=== PATIENT | male | born 1990 | race African-American/Black ===

== ENCOUNTER 2021-04-15 21:11 | Inpatient (IN) | payer OTHER ==
[~2021-04-15] VITALS: Ht 175.3 cm; Wt 75.0 kg
--- NOTE | 2021-04-15 21:17 | NUR ---
PT ARRIVED VIA EMS IN RESPIRATORY DISTRESS BEING GIVEN RESPIRATIONS VIA AMBU BAG PT TRANSFERRED TO [facility] AND INITIAL VITALS TAKEN. RSI BEGAN AND EKG DONE AND EVALUATED BY DR. PARISH. HR 153 77% ON BVM 156/28 RR 25 MEDICATIONS GIVEN AT 2121 10 ETOMIDATE 70 ROCURONIUM TEMP TABOR PUT IN 137 HR 81 % BVM 17 RR 163/27 2122 MAC 4 USED FOR SIZE 8 TUBE AT 26 AT TEETH. 5 MG VERSED GIVEN 2127 NO PULSE, CPR GIVEN 1MG EPI GIVEN 0J BP 2128 1L FLUIDS TEMP 39.2C 2129 STOPPED COMPRESSIONS PADS PLACED 20 G IN HAND PLACED PULSE CHECK AT 2 MIN AFTER CPR BEGAN HR 206 - PULSE CONFIRMED RR 25 BVM 40.1 TEMP 2131 PULSES CONFIRMED BP 106/37 40.6 TEMP 93 VENT 100% O2 2135 HR 176 RR 24 BP SPO2 98%
[2021-04-15] MEDS ORDERED: naloxone 0.4 mg/ml inj ONE (21:20)
[2021-04-15] MEDS ORDERED: naloxone 2mg/2ml inj ONE (21:20)
[2021-04-15] MEDS ORDERED: NORepinephrine 8mg/ 250ml NS 250 ML IV ONE (21:33)
[2021-04-15 21:34] LABS: ABG BASE EXCESS -15.7 mmol/L (-2.0-2.0); ABG HCO3 14.2 mmol/L (22.0-26.0); ABG OXYGEN SATURATION 99.4 % (94-97); ABG PCO2 (T) 55.1 mmHg (35.0-48.0); ABG PO2 (T) 378.6 mmHg (75.0-100.0); ALLEN'S TEST POSITIVE; FCOHb 0.2 % (0.0-3.9); FMetHb 0.4 % (0.0-1.5); FO2Hb 98.8 % (94-97); TOTAL HEMOGLOBIN 15.4 G/dl (14.0-18.0)
[2021-04-15] MEDS ORDERED: normal saline 1000ml 1,000 ML ONE ×2 (21:43→21:53)
--- NOTE | 2021-04-15 21:44 | NUR ---
2140 BG 96 HR 181 NOREPI DRIP BEGAN AT 0.5 MCG/KG/MIN PULSE CONFIRMED TO BE 179 BP 63/36 PT ON VENT AT RR22, 101 FIO2, 540 TIDAL VOLUME AND 16 PEAK PRESSURE 2146 BP 74/28 179 PULSE 1 AMP BICARB GIVEN 2148 BP 87/30 HR 172 RR 22 ON VENT 101 FIO2 SET UP FOR ARTERIAL LINE FOR DR. PARISH 2ND LITER NS IN ORDER FOR FENTANYL AND VERSED DRIPS IN CENTRAL LINE INITIATED BY DR. PARISH 2154 SET UP FOR ART LINE WELL 2200 HR 1710 BP 95/30 RR 22 ON VENT 101 % TEMP 41.2 2203 HR 168 BP 100/30
[2021-04-15] MEDS ORDERED: FENTANYL-0.9 % NACL/PF 100 ML IV PRN (21:50)
--- NOTE | 2021-04-15 22:04 | NUR ---
FENTANYL DRIP 35 MCG/HR INITIATED BP 109/28 PULSE 168
[2021-04-15] MEDS ORDERED: iohexol 300mg/ml 100ml inj. ONE (22:05)
[2021-04-15 22:07] LABS: BASOPHILS # (AUTO) 0.1 X10'3 (0-0.2); EOSINOPHILS # (AUTO) 0.1 X10'3 (0-0.9); EOSINOPHILS % (AUTO) 2.2 % (0-6); HEMATOCRIT 41.7 % (42.0-52.0); HEMOGLOBIN 13.6 g/dl (14.0-17.9); MEAN CORPUSCULAR HEMOGLOBIN 32.4 PG (27.0-31.0); MEAN CORPUSCULAR HGB CONC 32.6 g/dL (33.0-36.5); MEAN CORPUSCULAR VOLUME 99.3 FL (78-98); MEAN PLATELET VOLUME 8.3 FL (7.4-10.4); MONOCYTES # (AUTO) 0.6 X10'3 (0-0.9); MONOCYTES % (AUTO) 8.4 % (2-12); NEUTROPHILS % (AUTO) 58.4 % (42-75); PLATELET COUNT 310 X10'3 (140-440); RED CELL DISTRIBUTION WIDTH 12.9 % (11.5-14.5); WHITE BLOOD COUNT 6.8 X10'3 (4.5-11.0)
--- NOTE | 2021-04-15 22:10 | NUR ---
18G IV RIGHT AC WITH NOREPI PT GETTING PREPARED TO GO TO CT NOREPI DRIP MOVED TO CENTRAL LINE VERSED BEGAN AT 5MG/HR HOOKED TO CENTRAL LINE ALL MEDICATIONS NOW RUNNING THROUGH CENTRAL LINE PT TO TAX MANAGER PUBLIC AT 2024 WITH RT AND SLATE MIXER WITH PT CURRENT BP 113/42 HR 170
[2021-04-15 22:29] LABS: ALANINE AMINOTRANSFERASE 77 U/L (12-78); ALBUMIN 3.6 G/DL (3.4-5.0); ALBUMIN/GLOBULIN RATIO 0.8 (1.1-1.5); ALKALINE PHOSPHATASE 70 IU/L (46-116); ANION GAP 20 (8-16); ASPARTATE AMINO TRANSFERASE 216 U/L (10-37); BLOOD UREA NITROGEN 24 MG/DL (7-18); BUN/CREATININE RATIO 7.4 (5.4-32.0); CALCIUM 8.5 MG/DL (8.5-10.1); CARBAMAZEPINE (TEGRETOL) < 0.5 UG/ML (4.0-12.0); CHLORIDE 107 MMOL/L (99-107); CREATININE 3.25 MG/DL (0.60-1.10); GLUCOSE 122 MG/DL (70-104); SODIUM 147 MMOL/L (135-145); TOTAL CARBON DIOXIDE 20.1 MMOL/L (24-32); TOTAL PROTEIN 7.9 G/DL (6.4-8.2); VALPROATE < 3.0 UG/ML (50-100); eGFR 22 ML/MIN
[2021-04-15 22:31] LABS: ACETAMINOPHEN < 2.0 UG/ML (10-30); ETHANOL < 0.010 GM/DL (0.0-0.010); PHENYTOIN (DILANTIN) < 0.5 UG/ML (10.0-20.0)
[2021-04-15] MEDS ORDERED: VANCOMYCIN 1,500MG inj. 1,500 MG in normal saline 250ml IV soln 300 ML IV ONE (22:35)
[2021-04-15] MEDS ORDERED: piperacillin/tazo 4.5gm/100ml 100 ML IV ONE (22:37)
[2021-04-15] MEDS ORDERED: acetaminophen 650mg rectal suppository RC ONE (23:00)
[2021-04-15] MEDS: midazolam 100mg in NS 100ml 100 ML IV PRN (23:43)
[2021-04-15] MEDS: FENTANYL-0.9 % NACL/PF 100 ML IV PRN (23:44)
[2021-04-16] VITALS (20 sets, daily range): BP systolic 90–124; BP diastolic 44–88
[2021-04-16] MEDS ORDERED: CefTRIAXone 2gm/D5W 50ml BAG 50 ML IV ONE (00:11)
[2021-04-16] MEDS ORDERED: NORepinephrine 8mg/ 250ml NS 250 ML IV ONE ×2 (01:04→06:01)
[2021-04-16] MEDS: FENTANYL-0.9 % NACL/PF 100 ML IV PRN (01:24)
[2021-04-16 01:40] LABS: GLUCOSE,CSF 100 MG/DL (40-75); TOTAL PROTEIN,CSF 29 MG/DL (15-45)
[2021-04-16 01:44] LABS: APPEARANCE,CSF CLEAR; CSF SUPERNATANT COLOR COLORLESS
[2021-04-16 01:45] LABS: CSF RBC 1 /CU MM (0); CSF VOLUME 9 ML; TUBE# COUNTED 4
[2021-04-16 01:48] LABS: CSF WBC CT 1 /CU MM (0-5)
[2021-04-16 02:37] LABS: HEMATOCRIT 44.1 % (42.0-52.0); HEMOGLOBIN 14.4 g/dl (14.0-17.9); MEAN CORPUSCULAR HEMOGLOBIN 32.3 PG (27.0-31.0); MEAN CORPUSCULAR HGB CONC 32.6 g/dL (33.0-36.5); MEAN CORPUSCULAR VOLUME 99.1 FL (78-98); MEAN PLATELET VOLUME 8.4 FL (7.4-10.4); PLATELET COUNT 158 X10'3 (140-440); RED BLOOD COUNT 4.45 X10'6 (4.70-6.10); RED CELL DISTRIBUTION WIDTH 13.1 % (11.5-14.5); WHITE BLOOD COUNT 14.3 X10'3 (4.5-11.0)
[2021-04-16] MEDS ORDERED: magnesium 2GM in 50ml NS 50 ML IV PRN (02:40)
[2021-04-16] MEDS ORDERED: potassium Cl 40MEQ/250ML bag 270 ML IV PRN ×2 (02:40)
[2021-04-16 02:53] LABS: ABG BASE EXCESS -15.9 mmol/L (-2.0-2.0); ABG HCO3 11.7 mmol/L (22.0-26.0); ABG OXYGEN SATURATION 99.5 % (94-97); ABG PCO2 (T) 31.3 mmHg (35.0-48.0); ABG PO2 (T) 370.8 mmHg (75.0-100.0); FMetHb 0.3 % (0.0-1.5); FO2Hb 99.2 % (94-97); PATIENT TEMPERATURE 35.4; RESPIRATORY RATE 22 b/min; TIDAL VOLUME 500 mL; TOTAL HEMOGLOBIN 15.5 G/dl (14.0-18.0)
[2021-04-16 03:47] LABS: ALANINE AMINOTRANSFERASE 861 U/L (12-78); ALBUMIN 2.7 G/DL (3.4-5.0); ALBUMIN/GLOBULIN RATIO 0.8 (1.1-1.5); ALKALINE PHOSPHATASE 83 IU/L (46-116); ANION GAP 19 (8-16); BILIRUBIN,TOTAL 1.1 MG/DL (0.1-1.0); BLOOD UREA NITROGEN 28 MG/DL (7-18); BUN/CREATININE RATIO 6.8 (5.4-32.0); CHLORIDE 114 MMOL/L (99-107); CREATININE 4.09 MG/DL (0.60-1.10); MAGNESIUM 3.3 MG/DL (1.5-2.4); PHOSPHORUS 5.7 MG/DL (2.3-4.5); POTASSIUM 3.5 MMOL/L (3.5-5.1); SODIUM 149 MMOL/L (135-145); TOTAL CARBON DIOXIDE 16.5 MMOL/L (24-32); TOTAL PROTEIN 6.3 G/DL (6.4-8.2); eGFR 21 ML/MIN
[2021-04-16 03:49] LABS: ASPARTATE AMINO TRANSFERASE 1751 U/L (10-37)
[2021-04-16] MEDS ORDERED: CALCIUM GLUC 1gm/50ml NACL,iso 50 ML IV SCH (04:15)
[2021-04-16] MEDS ORDERED: dextrose 50%-water 50ml dispensing syringe IV ONE ×3 (04:15→12:06)
[2021-04-16 04:29] LABS: CALCIUM 5.8 MG/DL (8.5-10.1); GLUCOSE 28 MG/DL (70-104)
[2021-04-16 04:38] LABS: CREATINE KINASE 33546 U/L (39-308)
[2021-04-16] MEDS: vasopressin inj. 40 UNIT in normal saline 50ml IV soln 38 ML IV SCH ×2 (05:45→16:28)
[2021-04-16] MEDS ORDERED: sodium bicarbonate (8.4%) inj. 150 MEQ in dextrose 5%-water 1,000 ML IV SCH (06:00)
[2021-04-16] MEDS ORDERED: thiamine 100mg/ml 2ml inj. IV ONE (06:00)
[2021-04-16] MEDS ORDERED: thiamine inj. 100 MG in normal saline 100ml IV soln 100 ML IV ONE (06:10)
--- NOTE | 2021-04-16 07:00 | NUR ---
patient had levophed and vasopressin running. Order for levophed was not transferred from ER. order placed for levophed.
[2021-04-16] MEDS: K, MAG and/or Phos replacement - Verify level? MC SCH (07:50)
[2021-04-16] MEDS ORDERED: rocuronium 10mg/ml inj IV ONE (08:00)
[2021-04-16] MEDS ORDERED: hydrocortisone sod succ/PF 100mg/2ml inj. IV SCH (08:00)
[2021-04-16] MEDS ORDERED: epiNEPHrine 0.1mg/ml 10ml syringe ONE (08:00)
[2021-04-16] MEDS ORDERED: sodium bicarbonate (8.4%) 1 mEq/ml syringe ONE (08:00)
[2021-04-16] MEDS: docusate sod 100mg capsule PO SCH ×2 (08:00→20:00)
[2021-04-16] MEDS: NORepinephrine 8mg/ 250ml NS 250 ML IV SCH ×6 (08:20→23:06)
[2021-04-16] MEDS: pantoprazole 40 MG vial IV SCH (08:44)
[2021-04-16] MEDS: midazolam 100mg in NS 100ml 100 ML IV PRN (08:44)
[2021-04-16] MEDS: mineral oil/petrolatum ophthal oint EACHEYE PRN (09:44)
--- NOTE | 2021-04-16 10:00 | NUR ---
updated on patient's condition and current labs. orders received for cryo, 2 FFP, D10, solucortef at 100, thyroid panel and cortisol.
--- NOTE | 2021-04-16 11:00 | NUR ---
MD aware patient is having bleeding from Nares, mouth, and continuous liquid pink stool. patient is not on sedation , has no corneal reflexes and pupils are nonreactive and pinpoint. [facility] contacted.
[2021-04-16 11:37] LABS: EOSINOPHILS # (AUTO) 0.1 X10'3 (0-0.9); HEMOGLOBIN 12.2 g/dl (14.0-17.9); MEAN PLATELET VOLUME 7.5 FL (7.4-10.4); MONOCYTES # (AUTO) 0.9 X10'3 (0-0.9); RED BLOOD COUNT 3.79 X10'6 (4.70-6.10)
[2021-04-16 11:39] LABS: BASOPHILS % (AUTO) 0.3 % (0-1); EOSINOPHILS % (AUTO) 0.5 % (0-6); HEMATOCRIT 37.8 % (42.0-52.0); LYMPHOCYTES # (AUTO) 1.9 X10'3 (1.1-4.8); LYMPHOCYTES % (AUTO) 13.9 % (21-51); MEAN CORPUSCULAR HEMOGLOBIN 32.3 PG (27.0-31.0); MEAN CORPUSCULAR HGB CONC 32.3 g/dL (33.0-36.5); MEAN CORPUSCULAR VOLUME 99.9 FL (78-98); MONOCYTES % (AUTO) 7.1 % (2-12); NEUTROPHILS # (AUTO) 10.5 X10'3 (1.8-7.7); NEUTROPHILS % (AUTO) 78.2 % (42-75); PLATELET COUNT 94 X10'3 (140-440); RED CELL DISTRIBUTION WIDTH 13.4 % (11.5-14.5); WHITE BLOOD COUNT 13.4 X10'3 (4.5-11.0)
--- NOTE | 2021-04-16 11:40 | NUR ---
Initial: Pt intubated after being found down by EMS DX shock, respiratory failure, renal failure, and hx N/V episode in the field prior to requiring intubation per EMR. Remains NPO at this time w/ OG in place MAP [address] AM [address] rounds. Noted critical GLU 28 early this AM s/p D50 now WNL. TF recs below in case prolonged intubation. Will monitor for nutrition support needs on vent. Rec: 1. IF TF; Vital AF at 75ml/hr goal; to provide 1800ml volume, 2160kcals, 1458ml free water, and 135g protein. 2. IF TF; additional water flush 200ml Q4H 3. IF TF; PALB Q /; daily wts 4. routine bowel care 5. upon extubation; advance diet as medically indicated to regular; consider renal diet if renal labs continue to worsen 6. 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
[2021-04-16 12:01] LABS: ALBUMIN 1.9 G/DL (3.4-5.0); ALBUMIN/GLOBULIN RATIO 0.7 (1.1-1.5); ALKALINE PHOSPHATASE 73 IU/L (46-116); ANION GAP 21 (8-16); BILIRUBIN,TOTAL 0.9 MG/DL (0.1-1.0); BLOOD UREA NITROGEN 35 MG/DL (7-18); BUN/CREATININE RATIO 7.8 (5.4-32.0); CHLORIDE 118 MMOL/L (99-107); CREATININE 4.47 MG/DL (0.60-1.10); POTASSIUM 3.3 MMOL/L (3.5-5.1); SODIUM 151 MMOL/L (135-145); TOTAL PROTEIN 4.5 G/DL (6.4-8.2); eGFR 19 ML/MIN
[2021-04-16 12:03] LABS: GLUCOSE 28 MG/DL (70-104); TOTAL CARBON DIOXIDE 12.4 MMOL/L (24-32)
[2021-04-16 12:04] LABS: ALANINE AMINOTRANSFERASE 1325 U/L (12-78)
[2021-04-16 12:05] LABS: CALCIUM < 5.0 MG/DL (8.5-10.1)
[2021-04-16] MEDS ORDERED: sodium chloride inj. 154 MEQ in Dextrose 10%-water IV solution 961.5 ML IV SCH (12:15)
[2021-04-16 12:17] LABS: ASPARTATE AMINO TRANSFERASE 2421 U/L (10-37)
[2021-04-16] MEDS: dextrose 50%-water 50ml dispensing syringe IV PRN (12:23)
[2021-04-16 12:28] LABS: PARTIAL THROMBOPLASTIN TIME 70 SECONDS (22-32)
[2021-04-16] MEDS: Dextrose 10%-water IV solution 1,000 ML IV SCH ×2 (12:30→22:15)
[2021-04-16 12:44] LABS: MAGNESIUM 2.4 MG/DL (1.5-2.4); PHOSPHORUS 6.6 MG/DL (2.3-4.5)
[2021-04-16 14:50] LABS: NUCLEATED RED BLOOD CELLS 3 /100WBC (0-0); PLATELET ESTIMATE DECREASED; TOTAL CELLS COUNTED 100
[2021-04-16 14:51] LABS: POLYCHROMASIA FEW; SCHISTOCYTES FEW
[2021-04-16 16:16] LABS: ABG BASE EXCESS -17.8 mmol/L (-2.0-2.0); ABG HCO3 10.2 mmol/L (22.0-26.0); ABG OXYGEN SATURATION 97.4 % (94-97); ABG PCO2 (T) 32.9 mmHg (35.0-48.0); ABG PO2 (T) 121.6 mmHg (75.0-100.0); FCOHb 0.3 % (0.0-3.9); FMetHb 0.4 % (0.0-1.5); FO2Hb 96.7 % (94-97); PATIENT TEMPERATURE 37.7; PEEP 5 cm H2O; RESPIRATORY RATE 26 b/min; TIDAL VOLUME 500 mL
[2021-04-16] MEDS: hydrocortisone sod succ/PF 100mg/2ml inj. IV SCH (16:24)
--- NOTE | 2021-04-16 16:35 | NUR ---
notified MD patient is maxed out on norepinepherine and vasopressin with a MAP of 58. MD aware of patient's change in ABG. Orders to discontinue the bicarb drip and to redraw lactic at 2200.
[2021-04-16] MEDS ORDERED: potassium Cl 20mEq/100mL bag 100 ML IV ONE (17:05)
--- NOTE | 2021-04-16 17:53 | NUR ---
attempted to contact Dr. Berry about patient's positive blood cultures. Mailbox is full. will try again.
[2021-04-16] MEDS ORDERED: NORepinephrine inj. 32 MG in normal saline 250ml IV soln 218 ML IV SCH (20:45)
[2021-04-16 21:47] LABS: EOSINOPHILS % (AUTO) 0.2 % (0-6); MEAN CORPUSCULAR VOLUME 100.1 FL (78-98)
[2021-04-16 21:48] LABS: BASOPHILS % (AUTO) 0.1 % (0-1); HEMATOCRIT 34.5 % (42.0-52.0); LYMPHOCYTES # (AUTO) 1.3 X10'3 (1.1-4.8); LYMPHOCYTES % (AUTO) 9.4 % (21-51); MEAN CORPUSCULAR HEMOGLOBIN 31.9 PG (27.0-31.0); MEAN CORPUSCULAR HGB CONC 31.9 g/dL (33.0-36.5); MEAN PLATELET VOLUME 8.7 FL (7.4-10.4); MONOCYTES # (AUTO) 0.6 X10'3 (0-0.9); MONOCYTES % (AUTO) 4.4 % (2-12); NEUTROPHILS # (AUTO) 11.8 X10'3 (1.8-7.7); NEUTROPHILS % (AUTO) 85.9 % (42-75); RED BLOOD COUNT 3.45 X10'6 (4.70-6.10); RED CELL DISTRIBUTION WIDTH 13.3 % (11.5-14.5); WHITE BLOOD COUNT 13.7 X10'3 (4.5-11.0)
[2021-04-16 22:01] LABS: PARTIAL THROMBOPLASTIN TIME 54 SECONDS (22-32)
[2021-04-16 22:12] LABS: ALBUMIN/GLOBULIN RATIO 0.7 (1.1-1.5); ALKALINE PHOSPHATASE 87 IU/L (46-116); ANION GAP 25 (8-16); BILIRUBIN,TOTAL 1.6 MG/DL (0.1-1.0); BLOOD UREA NITROGEN 43 MG/DL (7-18); BUN/CREATININE RATIO 6.5 (5.4-32.0); CHLORIDE 112 MMOL/L (99-107); CREATININE 6.65 MG/DL (0.60-1.10); GLUCOSE 82 MG/DL (70-104); POTASSIUM 4.9 MMOL/L (3.5-5.1); SODIUM 147 MMOL/L (135-145); TOTAL PROTEIN 4.7 G/DL (6.4-8.2); eGFR 12 ML/MIN
[2021-04-16 22:23] LABS: PLATELET COUNT 44 X10'3 (140-440)
[2021-04-16 22:36] LABS: CALCIUM 5.2 MG/DL (8.5-10.1); TOTAL CARBON DIOXIDE 9.8 MMOL/L (24-32)
[2021-04-16 22:39] LABS: ALANINE AMINOTRANSFERASE 3532 U/L (12-78)
[2021-04-16 22:46] LABS: ASPARTATE AMINO TRANSFERASE > 7000 U/L (10-37)
[2021-04-16 23:23] LABS: VANCOMYCIN,RANDOM 21.1 UG/ML
[2021-04-17] VITALS (24 sets, daily range): BP systolic 90–157; BP diastolic 30–56
[2021-04-17] MEDS: hydrocortisone sod succ/PF 100mg/2ml inj. IV SCH ×3 (00:52→16:09)
[2021-04-17 01:41] LABS: URINE AMPHETAMINE SCREEN NEGATIVE (Neg); URINE BARBITUATE SCREEN NEGATIVE (Neg); URINE BENZODIAZEPINES SCREEN NEGATIVE (Neg); URINE CANNABINOID SCREEN NEGATIVE (Neg); URINE COCAINE SCREEN NEGATIVE (Neg); URINE METHADONE SCREEN NEGATIVE (Neg); URINE OPIATE SCREEN NEGATIVE (Neg); URINE PHENCYCLIDINE SCREEN NEGATIVE (Neg)
[2021-04-17] MEDS: CALCIUM GLUC 1gm/50ml NACL,iso 50 ML IV SCH ×2 (02:06→03:46)
[2021-04-17] MEDS: sodium bicarbonate (8.4%) inj. 150 MEQ in dextrose 5%-water 1,000 ML IV SCH ×3 (02:07→23:00)
[2021-04-17 03:26] LABS: CLARITY,URINE CLEAR (Clear); COLOR,URINE YELLOW (Yellow); GLUCOSE, URINE NEGATIVE (Neg); KETONES,URINE NEGATIVE (Neg); LEUKOCYTE ESTERASE ,URINE NEGATIVE (Neg); NITRITES, URINE NEGATIVE (Neg); OCCULT BLOOD,URINE LARGE (Neg); PH,URINE 6.5 (4.8-8.0); PROTEIN,URINE 100 mg/dl (Neg); UROBILINOGEN,URINE 0.2 E.U/dL (0.2-1.0)
[2021-04-17 03:46] LABS: ABG BASE EXCESS -23.6 mmol/L (-2.0-2.0); ABG HCO3 6.6 mmol/L (22.0-26.0); ABG OXYGEN SATURATION 97.2 % (94-97); ABG PCO2 (T) 30.6 mmHg (35.0-48.0); ABG PO2 (T) 134.8 mmHg (75.0-100.0); FCOHb 0.3 % (0.0-3.9); FMetHb 2.1 % (0.0-1.5); FO2Hb 94.9 % (94-97); PEEP 5 cm H2O; RESPIRATORY RATE 26 b/min; TIDAL VOLUME 500 mL; TOTAL HEMOGLOBIN 10.8 G/dl (14.0-18.0)
[2021-04-17] MEDS: dextrose 50%-water 50ml dispensing syringe IV PRN ×4 (03:47→23:21)
[2021-04-17 04:02] LABS: UA COLLECTION TYPE FOLEY CATH
[2021-04-17 04:07] LABS: BACTERIA,URINE NONE SEEN /HPF (Neg); MUCUS STRANDS FEW /LPF (Neg); RENAL CELLS, URINE FEW /HPF; SQUAMOUS EPITHELIAL CELL,UR NONE SEEN /LPF (FEW)
[2021-04-17 04:08] LABS: AMORPHOUS URATES 1+
[2021-04-17 04:28] LABS: MONOCYTES # (AUTO) 0.6 X10'3 (0-0.9)
[2021-04-17 04:30] LABS: BASOPHILS % (AUTO) 0.2 % (0-1); EOSINOPHILS # (AUTO) 0.1 X10'3 (0-0.9); EOSINOPHILS % (AUTO) 0.6 % (0-6); HEMATOCRIT 31.7 % (42.0-52.0); HEMOGLOBIN 10.1 g/dl (14.0-17.9); LYMPHOCYTES % (AUTO) 7.1 % (21-51); MEAN CORPUSCULAR HEMOGLOBIN 31.7 PG (27.0-31.0); MEAN CORPUSCULAR HGB CONC 31.7 g/dL (33.0-36.5); NEUTROPHILS # (AUTO) 12.6 X10'3 (1.8-7.7); NEUTROPHILS % (AUTO) 88.1 % (42-75); RED BLOOD COUNT 3.17 X10'6 (4.70-6.10); RED CELL DISTRIBUTION WIDTH 14.1 % (11.5-14.5); WHITE BLOOD COUNT 14.3 X10'3 (4.5-11.0)
[2021-04-17] MEDS ORDERED: sodium bicarbonate (8.4%) 1 mEq/ml syringe ONE (04:39)
[2021-04-17 04:40] LABS: PARTIAL THROMBOPLASTIN TIME 62 SECONDS (22-32)
[2021-04-17 04:44] LABS: ALBUMIN 1.7 G/DL (3.4-5.0); ALBUMIN/GLOBULIN RATIO 0.7 (1.1-1.5); ALKALINE PHOSPHATASE 94 IU/L (46-116); ANION GAP 30 (8-16); BLOOD UREA NITROGEN 48 MG/DL (7-18); BUN/CREATININE RATIO 6.2 (5.4-32.0); CHLORIDE 110 MMOL/L (99-107); CREATININE 7.77 MG/DL (0.60-1.10); GLUCOSE 120 MG/DL (70-104); MAGNESIUM 2.4 MG/DL (1.5-2.4); SODIUM 147 MMOL/L (135-145); VANCOMYCIN,RANDOM 20.2 UG/ML; eGFR 10 ML/MIN
[2021-04-17 04:46] LABS: POTASSIUM 6.1 MMOL/L (3.5-5.1)
[2021-04-17 04:47] LABS: CALCIUM 5.7 MG/DL (8.5-10.1); TOTAL CARBON DIOXIDE 7.5 MMOL/L (24-32)
[2021-04-17 05:03] LABS: PLATELET COUNT 47 X10'3 (140-440)
[2021-04-17] MEDS ORDERED: vancomycin/NS 1 GM ADD-VANTAGE 250 ML IV STA (05:03)
[2021-04-17 05:04] LABS: ALANINE AMINOTRANSFERASE 4819 U/L (12-78); ASPARTATE AMINO TRANSFERASE > 7000 U/L (10-37)
[2021-04-17] MEDS ORDERED: sodium bicarbonate (8.4%) 1 mEq/ml syringe IV ONE (05:05)
[2021-04-17 05:06] LABS: D-DIMER > 35.20 MG/L FEU (0-0.50)
[2021-04-17 05:20] LABS: PLATELET COUNT 47 X10'3 (140-440)
[2021-04-17 06:48] LABS: CREATINE KINASE 80984 U/L (39-308)
[2021-04-17] MEDS: pantoprazole 40 MG vial IV SCH (07:18)
[2021-04-17] MEDS: mineral oil/petrolatum ophthal oint EACHEYE PRN ×2 (07:25→16:17)
[2021-04-17] MEDS: docusate sod 100mg capsule PO SCH ×2 (07:30→20:00)
[2021-04-17] MEDS: K, MAG and/or Phos replacement - Verify level? MC SCH (07:31)
[2021-04-17 07:33] LABS: ABG OXYGEN SATURATION 96.6 % (94-97); ABG PCO2 (T) 25.4 mmHg (35.0-48.0); ABG PO2 (T) 116.2 mmHg (75.0-100.0); FCOHb 0.3 % (0.0-3.9); FMetHb 3.8 % (0.0-1.5); FO2Hb 92.6 % (94-97); PATIENT TEMPERATURE 36.8; PEEP 5 cm H2O; RESPIRATORY RATE 30 b/min; TIDAL VOLUME 521 mL; TOTAL HEMOGLOBIN 9.7 G/dl (14.0-18.0)
[2021-04-17] MEDS: NORepinephrine 8mg/ 250ml NS 250 ML IV SCH ×8 (07:42→20:32)
[2021-04-17] MEDS ORDERED: magnesium 4gm in 100ml NS 100 ML IV PRN (08:35)
[2021-04-17] MEDS ORDERED: calcium chloride inj. 1,000 MG in normal saline 100ml IV soln 100 ML IV PRN (08:35)
[2021-04-17] MEDS ORDERED: potassium Cl 40MEQ/250ML bag 270 ML IV PRN (08:35)
[2021-04-17] MEDS ORDERED: sodium phosphate inj. 30 MMOL in normal saline 250ml IV soln 250 ML IV PRN (08:35)
[2021-04-17] MEDS ORDERED: WATER IV ONE ×3 (08:55→14:30)
[2021-04-17] MEDS ORDERED: DEXTROSE 5% IV ONE ×3 (08:55→14:30)
[2021-04-17] MEDS ORDERED: ACETYLCYSTEINE IV ONE ×3 (08:55→14:30)
[2021-04-17] MEDS ORDERED: CefTRIAXone 2gm/D5W 50ml BAG 50 ML IV SCH (09:00)
[2021-04-17] MEDS: vasopressin inj. 40 UNIT in normal saline 50ml IV soln 38 ML IV SCH (09:28)
[2021-04-17 10:10] LABS: BASOPHILS # (AUTO) 0.1 X10'3 (0-0.2); HEMOGLOBIN 9.5 g/dl (14.0-17.9); LYMPHOCYTES # (AUTO) 1.8 X10'3 (1.1-4.8); LYMPHOCYTES % (AUTO) 10.3 % (21-51); MEAN CORPUSCULAR HGB CONC 31.6 g/dL (33.0-36.5); NEUTROPHILS # (AUTO) 14.5 X10'3 (1.8-7.7)
[2021-04-17 10:12] LABS: BASOPHILS % (AUTO) 0.4 % (0-1); EOSINOPHILS % (AUTO) 0.3 % (0-6); MEAN CORPUSCULAR HEMOGLOBIN 31.9 PG (27.0-31.0); MEAN CORPUSCULAR VOLUME 100.7 FL (78-98); MONOCYTES # (AUTO) 0.7 X10'3 (0-0.9); RED BLOOD COUNT 2.98 X10'6 (4.70-6.10); RED CELL DISTRIBUTION WIDTH 14.5 % (11.5-14.5); WHITE BLOOD COUNT 17.1 X10'3 (4.5-11.0)
[2021-04-17] MEDS: bicarb dialysis sol 2K+/3 Ca2+ 5,000 ML HE SCH ×7 (10:13→23:10)
[2021-04-17 10:21] LABS: PLATELET COUNT 39 X10'3 (140-440)
[2021-04-17 10:25] LABS: ALBUMIN 1.5 G/DL (3.4-5.0); ALBUMIN/GLOBULIN RATIO 0.7 (1.1-1.5); ALKALINE PHOSPHATASE 100 IU/L (46-116); ANION GAP 31 (8-16); BILIRUBIN,TOTAL 2.4 MG/DL (0.1-1.0); BLOOD UREA NITROGEN 50 MG/DL (7-18); BUN/CREATININE RATIO 6.2 (5.4-32.0); CHLORIDE 109 MMOL/L (99-107); GLUCOSE 81 MG/DL (70-104); MAGNESIUM 2.5 MG/DL (1.5-2.4); SODIUM 147 MMOL/L (135-145); TOTAL PROTEIN 3.7 G/DL (6.4-8.2); eGFR 9 ML/MIN
--- NOTE | 2021-04-17 10:30 | NUR ---
MD aware of patient's abnormal lab values, low temperature, unresponsiveness to painful stimuli, lack of corneal reflexes and rate of pressors. New orders received.
[2021-04-17 10:49] LABS: NUCLEATED RED BLOOD CELLS 5 /100WBC (0-0); PLATELET ESTIMATE DECREASED; TOTAL CELLS COUNTED 100
--- NOTE | 2021-04-17 10:57 | NUR ---
Pt with a low Jarad of 7. No edema or wounds per physical assessment however per RN at critical care rounds pt with DTIs to back side and back of legs. Multiple lacerations/abrasions in the lower extremities appear dried per MD note. Wound care has been consulted, pending assessment at this time. Pt started on CVVH, TF recommendations have been adjusted to accommodate. Will continue to follow closely. Addendum: 04/17/21 at [address] Amended: Links added.
[2021-04-17] MEDS: calcium chloride inj. 1,000 MG in normal saline 100ml IV soln 90 ML IV PRN ×2 (11:06→16:09)
[2021-04-17 11:34] LABS: ALBUMIN 1.5 G/DL (3.4-5.0); ANION GAP 35 (8-16); BLOOD UREA NITROGEN 49 MG/DL (7-18); BUN/CREATININE RATIO 6.3 (5.4-32.0); CHLORIDE 108 MMOL/L (99-107); CREATININE 7.79 MG/DL (0.60-1.10); GLUCOSE 92 MG/DL (70-104); MAGNESIUM 2.4 MG/DL (1.5-2.4); SODIUM 150 MMOL/L (135-145); eGFR 10 ML/MIN
[2021-04-17 11:36] LABS: PHOSPHORUS 14.1 MG/DL (2.3-4.5)
[2021-04-17 11:36] LABS: PHOSPHORUS 12.9 MG/DL (2.3-4.5)
[2021-04-17 11:42] LABS: CALCIUM 5.6 MG/DL (8.5-10.1); POTASSIUM 6.1 MMOL/L (3.5-5.1); TOTAL CARBON DIOXIDE 6.9 MMOL/L (24-32)
[2021-04-17 11:51] LABS: POTASSIUM 6.2 MMOL/L (3.5-5.1); TOTAL CARBON DIOXIDE 7.1 MMOL/L (24-32)
[2021-04-17 11:52] LABS: PARTIAL THROMBOPLASTIN TIME 78 SECONDS (22-32)
[2021-04-17 11:55] LABS: ALANINE AMINOTRANSFERASE 5779 U/L (12-78)
[2021-04-17 12:14] LABS: ASPARTATE AMINO TRANSFERASE > 7000 U/L (10-37)
--- NOTE | 2021-04-17 12:25 | NUR ---
notified of critical lab values lactic: 16.2, K 6.2, CO2 7.1, Ca 5.6, INR 4.6, PTT 78 plt 39. Repeat in 4hrs after CVVH up and running.
[2021-04-17 12:31] LABS: ALBUMIN 1.5 G/DL (3.4-5.0); ANION GAP 34 (8-16); BLOOD UREA NITROGEN 45 MG/DL (7-18); BUN/CREATININE RATIO 6.2 (5.4-32.0); CHLORIDE 108 MMOL/L (99-107); CREATININE 7.31 MG/DL (0.60-1.10); GLUCOSE 87 MG/DL (70-104); MAGNESIUM 2.4 MG/DL (1.5-2.4); SODIUM 148 MMOL/L (135-145); eGFR 11 ML/MIN
[2021-04-17 12:37] LABS: TOTAL CARBON DIOXIDE 6.5 MMOL/L (24-32)
[2021-04-17 12:40] LABS: PHOSPHORUS 12.5 MG/DL (2.3-4.5)
[2021-04-17 13:34] LABS: ALBUMIN 1.6 G/DL (3.4-5.0); ANION GAP 34 (8-16); BLOOD UREA NITROGEN 46 MG/DL (7-18); BUN/CREATININE RATIO 6.4 (5.4-32.0); CHLORIDE 107 MMOL/L (99-107); CREATININE 7.22 MG/DL (0.60-1.10); GLUCOSE 84 MG/DL (70-104); MAGNESIUM 2.2 MG/DL (1.5-2.4); SODIUM 147 MMOL/L (135-145); eGFR 11 ML/MIN
[2021-04-17 13:40] LABS: BASOPHILS % (AUTO) 0.3 % (0-1); EOSINOPHILS % (AUTO) 0.3 % (0-6); HEMOGLOBIN 10.3 g/dl (14.0-17.9); MEAN CORPUSCULAR HGB CONC 31.9 g/dL (33.0-36.5); MONOCYTES # (AUTO) 0.6 X10'3 (0-0.9)
[2021-04-17 13:42] LABS: BASOPHILS # (AUTO) 0.1 X10'3 (0-0.2); HEMATOCRIT 32.3 % (42.0-52.0); LYMPHOCYTES # (AUTO) 1.8 X10'3 (1.1-4.8); LYMPHOCYTES % (AUTO) 10.2 % (21-51); MEAN CORPUSCULAR HEMOGLOBIN 32.2 PG (27.0-31.0); MONOCYTES % (AUTO) 3.3 % (2-12); NEUTROPHILS % (AUTO) 85.9 % (42-75); RED CELL DISTRIBUTION WIDTH 14.3 % (11.5-14.5); WHITE BLOOD COUNT 17.4 X10'3 (4.5-11.0)
[2021-04-17 13:45] LABS: PLATELET COUNT 39 X10'3 (140-440); POTASSIUM 6.1 MMOL/L (3.5-5.1); TOTAL CARBON DIOXIDE 6.3 MMOL/L (24-32)
[2021-04-17 13:55] LABS: PHOSPHORUS 12.9 MG/DL (2.3-4.5)
--- NOTE | 2021-04-17 14:15 | NUR ---
notified MD patient maxed out on levophed and vasopressin with a MAP of 54. Orders received for 200mL 25% albumin and to keep patient 1L positive for current hour.
[2021-04-17] MEDS ORDERED: albumin (human) 25% 100 ML IV solution IV ONE (14:25)
[2021-04-17 15:24] LABS: BASOPHILS # (AUTO) 0.1 X10'3 (0-0.2); BASOPHILS % (AUTO) 0.4 % (0-1); HEMOGLOBIN 8.8 g/dl (14.0-17.9); MEAN CORPUSCULAR VOLUME 101.1 FL (78-98); MONOCYTES # (AUTO) 0.8 X10'3 (0-0.9)
[2021-04-17 15:25] LABS: EOSINOPHILS % (AUTO) 0.2 % (0-6); HEMATOCRIT 27.5 % (42.0-52.0); LYMPHOCYTES # (AUTO) 1.7 X10'3 (1.1-4.8); MEAN CORPUSCULAR HEMOGLOBIN 32.3 PG (27.0-31.0); MEAN CORPUSCULAR HGB CONC 31.9 g/dL (33.0-36.5); MEAN PLATELET VOLUME 9.8 FL (7.4-10.4); MONOCYTES % (AUTO) 4.7 % (2-12); NEUTROPHILS # (AUTO) 14.8 X10'3 (1.8-7.7); NEUTROPHILS % (AUTO) 84.7 % (42-75); RED BLOOD COUNT 2.72 X10'6 (4.70-6.10); RED CELL DISTRIBUTION WIDTH 14.7 % (11.5-14.5); WHITE BLOOD COUNT 17.4 X10'3 (4.5-11.0)
[2021-04-17 15:38] LABS: PLATELET COUNT 36 X10'3 (140-440)
[2021-04-17 15:40] LABS: ALBUMIN 2.3 G/DL (3.4-5.0); ANION GAP 34 (8-16); BLOOD UREA NITROGEN 42 MG/DL (7-18); BUN/CREATININE RATIO 6.3 (5.4-32.0); CHLORIDE 106 MMOL/L (99-107); CREATININE 6.67 MG/DL (0.60-1.10); GLUCOSE 76 MG/DL (70-104); SODIUM 147 MMOL/L (135-145); eGFR 12 ML/MIN
[2021-04-17 15:43] LABS: PHOSPHORUS 12.1 MG/DL (2.3-4.5)
[2021-04-17 15:49] LABS: POTASSIUM 6.2 MMOL/L (3.5-5.1)
[2021-04-17 15:50] LABS: TOTAL CARBON DIOXIDE 6.8 MMOL/L (24-32)
--- NOTE | 2021-04-17 18:25 | NUR ---
Patient in room CICU 2008. I have received report from Jane ENGLE and had the opportunity to ask questions and assume patient care.
[2021-04-17 19:25] LABS: ABG BASE EXCESS -23.3 mmol/L (-2.0-2.0); ABG HCO3 5.4 mmol/L (22.0-26.0); ABG OXYGEN SATURATION 97.8 % (94-97); ABG PCO2 (T) 20.3 mmHg (35.0-48.0); ABG PO2 (T) 124.7 mmHg (75.0-100.0); FCOHb 1.1 % (0.0-3.9); FMetHb 7.2 % (0.0-1.5); FO2Hb 89.7 % (94-97); PATIENT TEMPERATURE 37.4; PEEP 5 cm H2O; RESPIRATORY RATE 30 b/min; TIDAL VOLUME 500 mL; TOTAL HEMOGLOBIN 8.6 G/dl (14.0-18.0)
[2021-04-17] MEDS ORDERED: mineral oil/petrolatum, white cream 113gm jar TP SCH (20:00)
[2021-04-17 20:03] LABS: EOSINOPHILS # (AUTO) 0.1 X10'3 (0-0.9); HEMOGLOBIN 7.8 g/dl (14.0-17.9); LYMPHOCYTES # (AUTO) 1.2 X10'3 (1.1-4.8); MONOCYTES # (AUTO) 0.4 X10'3 (0-0.9)
[2021-04-17 20:05] LABS: BASOPHILS % (AUTO) 0.4 % (0-1); EOSINOPHILS % (AUTO) 0.7 % (0-6); HEMATOCRIT 24.5 % (42.0-52.0); LYMPHOCYTES % (AUTO) 10.1 % (21-51); MEAN CORPUSCULAR HEMOGLOBIN 31.7 PG (27.0-31.0); MEAN CORPUSCULAR HGB CONC 31.9 g/dL (33.0-36.5); MEAN CORPUSCULAR VOLUME 99.2 FL (78-98); MEAN PLATELET VOLUME 10.5 FL (7.4-10.4); MONOCYTES % (AUTO) 2.8 % (2-12); NEUTROPHILS # (AUTO) 10.6 X10'3 (1.8-7.7); RED BLOOD COUNT 2.47 X10'6 (4.70-6.10); RED CELL DISTRIBUTION WIDTH 14.3 % (11.5-14.5); WHITE BLOOD COUNT 12.4 X10'3 (4.5-11.0)
[2021-04-17 20:30] LABS: ALBUMIN 1.9 G/DL (3.4-5.0); ANION GAP 31 (8-16); BLOOD UREA NITROGEN 39 MG/DL (7-18); BUN/CREATININE RATIO 6.2 (5.4-32.0); CHLORIDE 106 MMOL/L (99-107); CREATININE 6.28 MG/DL (0.60-1.10); MAGNESIUM 2.3 MG/DL (1.5-2.4); SODIUM 148 MMOL/L (135-145); eGFR 13 ML/MIN
[2021-04-17 20:33] LABS: GLUCOSE 31 MG/DL (70-104); POTASSIUM 7.3 MMOL/L (3.5-5.1)
[2021-04-17 20:34] LABS: TOTAL CARBON DIOXIDE 10.8 MMOL/L (24-32)
[2021-04-17 20:38] LABS: PLATELET COUNT 35 X10'3 (140-440)
[2021-04-17 20:56] LABS: PARTIAL THROMBOPLASTIN TIME 88 SECONDS (22-32)
[2021-04-17] MEDS ORDERED: NORepinephrine inj. 32 MG in normal saline 250ml IV soln 218 ML IV SCH (21:05)
[2021-04-17 21:06] LABS: PHOSPHORUS 13.3 MG/DL (2.3-4.5)
[2021-04-17] MEDS: epiNEPHrine inj 5 MG in normal saline 250ml IV soln 245 ML IV PRN ×2 (21:45→23:56)
[2021-04-18] VITALS: BP 107/33
--- NOTE | 2021-04-18 00:30 | NUR ---
RN IS TO DOCUMENT YES TO ALL APPLICABLE AREAS Pronouncement of : 1. Time Physician Notified: 49 2. Date of : 04/18/2021 3. Time of : 11 4. DNR/Withdraw life support documented: Yes 5. Monitor strip has been placed on chart: Yes 6. Assessment process is of one-minute duration and includes following criteria: a) Patient is unresponsive to all stimuli: Yes b) Pupils fixed and non-reactive: Yes c) Auscultation of precordium reveals absence of heart tones: Yes d) Auscultation of lungs reveals absence of breath sounds: Yes e) Absence of blood pressure / all vital signs: Yes f) QRS complexes are not present on monitor / EKG strip: Yes g) Pacer spikes without capture: NA 4. Comments: Dr. Stevens notified of patient's , Deputy Rad Hutton notified on patient's as well
[2021-04-18] MEDS ORDERED: silver sulfadiazine cream 400gm jar TP SCH (08:00)
== END 2021-04-18 05:26 | disposition expired | DRG 871 ==
LOC: ER 21:12 → ED HOLD 04-16 02:39 → CICU 2S 04-16 02:40
PROVIDERS: ADMIT Student in an Organized Health Care Education/Training Program; ATTEND Student in an Organized Health Care Education/Training Program
PROC: 5A1945Z Respiratory Ventilation, 24-96 Consecutive Hours (ICD-10-PCS; principal; 2021-04-15)
PROC: 0BH17EZ Insertion of Endotracheal Airway into Trachea, Via Natural or Artificial Opening (ICD-10-PCS; 2021-04-15)
PROC: 5A12012 Performance of Cardiac Output, Single, Manual (ICD-10-PCS; 2021-04-15)
PROC: 06HY33Z Insertion of Infusion Device into Lower Vein, Percutaneous Approach (ICD-10-PCS; 2021-04-15)
PROC: B54CZZA Ultrasonography of Left Lower Extremity Veins, Guidance (ICD-10-PCS; 2021-04-15)
PROC: 04HY32Z Insertion of Monitoring Device into Lower Artery, Percutaneous Approach (ICD-10-PCS; 2021-04-15)
PROC: 009U3ZX Drainage of Spinal Canal, Percutaneous Approach, Diagnostic (ICD-10-PCS; 2021-04-15)
PROC: BW251ZZ Computerized Tomography (CT Scan) of Chest, Abdomen and Pelvis using Low Osmolar Contrast (ICD-10-PCS; 2021-04-15)
PROC: 30233K1 Transfusion of Nonautologous Frozen Plasma into Peripheral Vein, Percutaneous Approach (ICD-10-PCS; 2021-04-16)
PROC: 30233M1 Transfusion of Nonautologous Plasma Cryoprecipitate into Peripheral Vein, Percutaneous Approach (ICD-10-PCS; 2021-04-16)
PROC: 4A10X4Z Monitoring of Central Nervous Electrical Activity, External Approach (ICD-10-PCS; 2021-04-16)
PROC: 5A1D90Z Performance of Urinary Filtration, Continuous, Greater than 18 hours Per Day (ICD-10-PCS; 2021-04-17)
PROC: 06HY33Z Insertion of Infusion Device into Lower Vein, Percutaneous Approach (ICD-10-PCS; 2021-04-17)
PROC: 4A10X4Z Monitoring of Central Nervous Electrical Activity, External Approach (ICD-10-PCS; 2021-04-17)
DX: A41.89 Other specified sepsis (principal); J96.00 Acute respiratory failure, unspecified whether with hypoxia or hypercapnia; E87.2 Acidosis; I47.2 Ventricular tachycardia; M62.82 Rhabdomyolysis; N17.9 Acute kidney failure, unspecified; R57.9 Shock, unspecified; K92.1 Melena; G93.40 Encephalopathy, unspecified; I10 Essential (primary) hypertension; D69.6 Thrombocytopenia, unspecified; I46.9 Cardiac arrest, cause unspecified; K72.90 Hepatic failure, unspecified without coma; R65.20 Severe sepsis without septic shock; Z20.822 Contact with and (suspected) exposure to COVID-19; R34 Anuria and oliguria; R94.01 Abnormal electroencephalogram [EEG]
CPT/HCPCS: 36415; 36430; 36600; 70450; 71045; 71260; 72125; 74177; 80053; 80069; 80156; 80162; 80164; 80178; 80185; 80202; 80305; 80320; 80329; 81001; 82330; 82550; 82803; 82945; 82948; 83605; 83735; 84100; 84145; 84157; 84439; 84443; 85007; 85018; 85025; 85027; 85379; 85384; 85610; 85730; 86885; 86900; 86901; 87015; 87040; 87070; 87081; 87088; 87635; 89051; 92950; 93308; 94002; 94003; 94760; 95816; 96365; 96366; 96375; 96376; 99285; C9113; C9803; E1594; G0378; J0132; J0171; J0696; J1720; J2310; J3010; J3370; J3411; J3480; J3490; J7030; J7050; J7060; J7070; P9012; P9047; P9059; Q9967